=== PATIENT | male | born 1990 ===

== ENCOUNTER 2024-01-19 12:36 | Inpatient (IN) | payer MEDICAID, SELFPAY ==
[2024-01-19] VITALS (17 sets, daily range): BP systolic 113–130; BP diastolic 58–85; PULSE 68–124; RESP 16–17; TEMP 36.2–37.1; O2SAT 98; BMI 29.3
--- NOTE | ~2024-01-19 | CT_ITS ---
EXAMINATION: CT PELVIS WITH CONTRAST CLINICAL INFORMATION: Abscess. Question necrotizing fasciitis and cellulitis. COMPARISON: None available. TECHNIQUE: Helical scanning was performed with submillimeter collimation through the pelvis with the use of oral contrast and during bolus intravenous injection of 100 mL of Omnipaque 350 intravenous contrast. Sagittal and coronal multiplanar 2-D reconstructions were obtained. This CT examination was performed using dose optimization techniques as appropriate, variously including the following: *Automated exposure control *Adjustment of mA and/or kV according to patient size (this includes techniques or standardized protocols for targeted exams where dose is matched to indication/reason for exam; i.e. extremities or head) *Use of iterative reconstruction technique DLP: 2864 mGy-cm FINDINGS: BLADDER: Unremarkable GASTROINTESTINAL TRACT: The visualized small and large bowel appear unremarkable. ABDOMINAL WALL: Induration of subcutaneous fat in the left gluteal region. No abscess identified. No subcutaneous emphysema appreciated. LYMPH NODES: No evidence of adenopathy by size criteria. VASCULAR: Unremarkable PELVIC VISCERA: Unremarkable OSSEOUS STRUCTURES: No suspicious finding. Scattered bone islands. Approximately 1.2 cm, benign-appearing, well-circumscribed lytic lesion involving the right iliac bone (image 13, series 2). CT/CT pelvis w IV con IMPRESSION: Induration of subcutaneous fat in the left gluteal region. No abscess identified. No subcutaneous emphysema appreciated. Electronically signed by: Augustine Pradhan MD 01/19/2024 05:05 PM EDT
--- NOTE | 2024-01-19 12:45 | ED_ITS ---
HPI - General Adult General Chief complaint: Wound/Laceration Stated complaint: L buttock pain Time Seen by Provider: 01/19/24 13:32 Source: patient, RN notes reviewed and old records reviewed Mode of arrival: ambulatory History of Present Illness ED Provider: Suzi Larsen PA-C [facility] narrative: 33-year-old male with no significant past medical history presenting to ED complaining of suspected abscess to left buttock x 3 days. Admits to drainage noted yesterday. Reports subjective fever and chills. Denies difficulty or inability to have BM/urinate, bloody BMs, abdominal pain, vomiting Related Data Home Medications ?Medication ?Instructions ?Recorded ?Confirmed No Known Home Meds 01/19/24 01/19/24 Allergies Allergy/AdvReac Type Severity Reaction Status Date / Time amoxicillin [From AUGMENTIN] Allergy Severe HIVES Verified 01/19/24 12:45 clavulanic acid Allergy Severe HIVES Verified 01/19/24 12:45 [From AUGMENTIN] Review of Systems 2 Review of Systems: Yes all other systems are reviewed and are negative Constitutional: Constitutional: Reports as per HPI [facility] Past Medical History Attestation statement: The following information was validated with the patient. Source: old records reviewed Social History Social History Advance Directives: No Advance Directives Information Provided: Yes Do you have a plan to hurt others: No Plan Physical Exam ED Vital Signs: Vital Signs - 24 hr 01/19/24 12:44 01/19/24 14:03 01/19/24 14:33 Temperature 98.8 F Pulse Rate 124 H 98 78 Respiratory Rate 16 Blood Pressure 123/83 113/58 L 125/70 Pulse Oximetry 98 Oxygen Delivery Method Room Air 01/19/24 15:35 01/19/24 17:29 Temperature 98.6 F Pulse Rate 68 Respiratory Rate Blood Pressure 122/71 Pulse Oximetry Oxygen Delivery Method BMI result Body Mass Index 29.3 Const Other: Uncomfortable, standing General: cooperative, healthy appearing and no acute distress Orientation/consciousness: patient oriented x3 Limitations: no limitations HENMT Head: Yes normal to inspection and Yes atraumatic Ears: hearing grossly normal bilaterally General nose exam: Normal external nose present Face and sinus: Yes normal facial exam Eyes General: appearance normal, both eyes and all related structures EOM: EOMs intact bilaterally Neck Neck: Yes normal visual inspection and Yes no meningeal signs Resp Effort & Inspection: normal respiratory effort and no respiratory distress Cardio Rate: regular rate GI Inspection: Yes normal to inspection Palpation (GI): Soft to palpation, nontender, no guarding and not rigid Skin Other: + indurated abscess with surrounding cellulitis/erythema noted to left buttock. No fluctuance. + tender to palpation. No perirectal involvement. No perineal involvement Rashes: no rashes Neuro General: patient oriented x3, tone normal and no meningeal signs Cranial nerves: Yes CN's II-XII intact bilaterally Gait exam (Neuro): Normal gait present Extrem General: Yes normal to inspection Course Course Course Narrative: RME performed by Aidee Navarro PA-C. Patient is a 33 year old assigned male at presenting to the emergency department with a left buttock abscess. Patient states over the last 3 days he has had a left buttock abscess that is getting worse and giving him fevers at home. Detailed physical exam and review of systems are deferred to the ground operations crew member. Labs ordered. Patient placed back in the waiting room pending room availability and results. -1333--leukocytosis of 17.5. ESR/CRP elevated > will obtain lactic/blood cultures and ordered empiric IV Rocephin -total bilirubin mildly elevated (no priors to compare) -1448--lactic acid WNL -IV doxycycline added. -1630--case discussed with ED attending Dr. Alan who also evaluated patient. On re-evaluation patient is erythema has significantly worsened. Please refer to image. Concern for necrotizing fasciitis. Will obtain CT pelvis, and add broader coverage with IV Meropenem and Clindamycin. 1708--CT pelvis w IV con IMPRESSION: Induration of subcutaneous fat in the left gluteal region. No abscess identified. No subcutaneous emphysema appreciated. > will admit to hospitalist service and consult General surgery due to concern of early necrotizing fasciitis -Dr. Vu will evaluate patient in the ED > Dr. Vu performed bedside I&D. Patient admitted to hospitalist service Medications Administered Generic Name Dose Route Start Last Admin Trade Name Freq PRN Reason Stop Dose Admin Oxycodone HCl 5 mg 01/19/24 17:52 01/19/24 18:35 Oxycodone Hcl Immed Release 5 Mg Tablet PO 5 mg Q6H PRN Administration Pain, Moderate(Pain Scale 4-6) Discontinued Medications Generic Name Dose Route Start Last Admin Trade Name Mica PRN Reason Stop Dose Admin Ceftriaxone Sodium 1 gm/ 50 mls @ 100 mls/hr 01/19/24 13:33 01/19/24 14:29 Sodium Chloride IV 01/19/24 14:02 Infused ONCE ONE Infusion Sodium Chloride 1,000 mls @ 999 mls/hr 01/19/24 13:45 01/19/24 15:03 Ns IV 01/19/24 14:45 Infused .Q1H1M LUIS FERNANDO Infusion Sodium Chloride 1,000 mls @ 999 mls/hr 01/19/24 15:00 01/19/24 16:50 Ns IV 01/19/24 16:00 Infused .Q1H1M LUIS FERNANDO Infusion Sodium Chloride 400 mls @ 999 mls/hr 01/19/24 15:00 01/19/24 15:25 Ns IV 01/19/24 15:24 Infused .Q25M LUIS FERNANDO Infusion Doxycycline Hyclate 100 mg/ 250 mls @ 166.67 mls/hr 01/19/24 14:48 01/19/24 17:08 Sodium Chloride IV 01/19/24 16:17 Infused ONCE ONE Infusion Clindamycin Phosphate 600 mg in 50 mls @ 100 mls/hr 01/19/24 16:25 01/19/24 18:33 Cleocin IV 01/19/24 16:54 100 mls/hr ONCE ONE Administration Iohexol 85 ml 01/19/24 16:50 01/19/24 16:51 Iohexol 350 Mg/Ml 100 Ml Infus..Btl IV 01/19/24 16:51 85 ml ONCE ONE Administration Ketorolac Tromethamine 15 mg 01/19/24 14:31 01/19/24 14:38 Ketorolac Tromethamine 15 Mg/Ml Vial IVPUSH 01/19/24 14:32 15 mg ONCE ONE Administration Lidocaine HCl 5 ml 01/19/24 13:45 01/19/24 14:33 Lidocaine Hcl 1 % Mpf 5 Ml Vial INFILTRATI 01/19/24 13:46 5 ml ONCE ONE Administration Lidocaine HCl 5 ml 01/19/24 17:59 01/19/24 18:06 Lidocaine Hcl 1 % Mpf 5 Ml Vial INFILTRATI 01/19/24 18:00 5 ml ONCE ONE Administration Morphine Sulfate 2 mg 01/19/24 17:13 01/19/24 17:23 Morphine Sulfate 2 Mg/Ml Cartridge IVPUSH 01/19/24 17:14 2 mg ONCE ONE Administration Protocol Ondansetron HCl 4 mg 01/19/24 14:31 01/19/24 14:38 Ondansetron Hcl 4 Mg/2 Ml Vial IVPUSH 01/19/24 14:32 4 mg ONCE ONE Administration Procedures Abscess I/D Site: other (buttock) Side (if applicable): left Local Anesthetic: lidocaine 1% Amount of anesthesia used (mL): 2 Technique: needle aspiration Amount of fluid expressed (mL): 0 Sent for culture/gram staining?: No Irrigation: No Packing used?: none Medical Decision Making Medical Decision Making [facility] Narrative: 33-year-old male with no significant past medical history presenting to ED complaining of suspected abscess to left buttock x 3 days. On exam tachycardic likely from discomfort, standing, physical exam as above. Left buttock abscess appreciated with induration and cellulitis. Tender to palpation. No fluctuance. No perirectal involvement. Low suspicion for severe sepsis at this time, vital sign abnormalities likely from discomfort. Lower suspicion for fistula or deeper infection. No evidence of Tone's gangrene. Unlikely intra-abdominal pathology Plan: Labs ordered in triage, needle aspiration, Abx, reassess Please refer to course for remaining clinical decision making, interpretation of labs/imaging results, and discussions with consultants and/or family members. Differential Diagnosis Differential Diagnoses: The differential diagnosis associated with the presentation includes As above Admission/Observation Consideration of admission/observation: Escalation of care including admission/observation considered Consult Healthcare Provider Management of the patient was discussed with: Hospitalist Lab Data [facility] Lab Attestation statement: I reviewed the patient's lab results. 01/19/24 12:52 01/19/24 12:52 Labs: Lab Results 01/19/24 01/19/24 Range/Units 12:52 14:26 WBC 17.5 H (4.8-10.8) X10*3/uL RBC 5.04 (4.60-5.80) X10*6/uL Hgb 15.7 (14.0-18.0) g/dl Hct 44.7 (42.0-52.0) % MCV 88.7 (80.0-98.0) fL MCH 31.2 (27.0-33.0) pg MCHC 35.1 (31.0-36.0) g/dl RDW 12.2 (11.0-16.0) % Plt Count 240 (160-400) X10*3/uL MPV 8.6 L (9.4-12.4) fL Immature Gran % (Auto) 0.5 H (0.0-0.4) % Neut % (Auto) 81.6 H (45-73) % Lymph % (Auto) 11.8 L (20-40) % [place] % (Auto) 4.8 (2-11) % Eos % (Auto) 1.0 (0-4) % Baso % (Auto) 0.3 (0-2) % Lymph # (Auto) 2.1 (1.2-4.9) X10*3/uL [place] # (Auto) 0.8 (0.1-1.2) X10*3/uL Eos # (Auto) 0.2 (0.0-0.4) X10*3/uL Baso # (Auto) 0.1 (0.0-0.2) X10*3/uL Abs Immat Gran (auto) 0.09 H (0.00-0.03) X10*3/uL Absolute Neuts (auto) 14.3 H (2.0-8.3) x10*3/uL Absolute Nucleated RBC 0.000 (0.0-0.012) X10*3/uL Nucleated RBC % (auto) 0.0 (0.0-0.2) /100WBC ESR 18 H (0-15) MM/HR Sodium 141 (135-145) mmol/L Potassium 4.1 (3.3-5.1) mmol/L Chloride 107 (96-108) mmol/L Carbon Dioxide 24 (22-29) mmol/L Anion Gap 14 (12-20) BUN 11 (9-16) mg/dL Creatinine 0.76 (0.5-1.4) mg/dL Estim Creat Clear Calc 135.9 Estimated GFR > 60 Random Glucose 103 (60-115) mg/dL Lactic Acid 0.8 (0.5-2.0) mmol/L Calcium 9.5 (8.4-10.2) mg/dL Magnesium 2.0 (1.6-2.6) mg/dL Total Bilirubin 2.1 H (0.0-1.0) mg/dL AST 10 (5-37) U/L ALT 8 (0-40) U/L Alkaline Phosphatase 79 (39-117) U/L C-Reactive Protein 15.68 H (< or = 0.50) mg/dL Total Protein 7.5 (6.5-8.0) g/dL Albumin 4.5 (3.5-5.0) g/dL Independent Interpretation I performed an independent interpretation of an: CT Scan Radiology Impression Discussion of test interpretation with radiology: I have reviewed the radiologist's reading. External Record Review External record reviewed: Inpatient record, Office record, Outpatient record, Prior outpatient labs, Prior outpatient radiology, Primary care record and Outside ED record Tests considered The following testing was considered but not selected: As above Prescription Management I considered prescription management with: Pain Medication and Antibiotic Critical Care Time Critical Care Time Critical Care Time: Yes Total Critical Care Time: 60 Attestation: I have personally provided critical care time exclusive of time spent on separately billable procedures. Time includes review of lab data, radiology results, discussion with consultants, and monitoring for potential decompensation. Intervention performed as documented. Discharge Plan Discharge Clinical Impression: Abscess of buttock, Cellulitis Patient Disposition: Admitted As Inpatient
[2024-01-19 13:04] LABS: MANUAL DIFF FLAG NO
[2024-01-19 13:13] LABS: Basophils Absolute Auto 0.1 X10*3/uL (0.0-0.2); Basophils Percent Auto 0.3 % (0-2); Eosinophils Absolute Auto 0.2 X10*3/uL (0.0-0.4); Hematocrit 44.7 % (42.0-52.0); Hemoglobin 15.7 g/dl (14.0-18.0); Imm Gran Abs Auto 0.09 X10*3/uL (0.00-0.03); Imm Gran Pct Auto 0.5 % (0.0-0.4); Lymphocytes Absolute Auto 2.1 X10*3/uL (1.2-4.9); Lymphocytes Percent Auto 11.8 % (20-40); Mean Corpuscular HGB Conc 35.1 g/dl (31.0-36.0); Mean Corpuscular Hemoglobin 31.2 pg (27.0-33.0); Mean Corpuscular Volume 88.7 fL (80.0-98.0); Mean Platelet Volume 8.6 fL (9.4-12.4); Monocytes Absolute Auto 0.8 X10*3/uL (0.1-1.2); Monocytes Percent Auto 4.8 % (2-11); Neutrophils Absolute Auto 14.3 x10*3/uL (2.0-8.3); Neutrophils Percent Auto 81.6 % (45-73); Platelet Count 240 X10*3/uL (160-400); Red Blood Count 5.04 X10*6/uL (4.60-5.80); Red Cell Distribution Width 12.2 % (11.0-16.0); White Blood Count 17.5 X10*3/uL (4.8-10.8)
[2024-01-19 13:20] LABS: Alanine Aminotransferase 8 U/L (0-40); Albumin Level 4.5 g/dL (3.5-5.0); Alkaline Phosphatase 79 U/L (39-117); Anion Gap 14 (12-20); Aspartate Amino Transferase 10 U/L (5-37); Bilirubin Total 2.1 mg/dL (0.0-1.0); Blood Urea Nitrogen 11 mg/dL (9-16); C Reactive Protein 15.68 mg/dL (< or = 0.50); Calcium 9.5 mg/dL (8.4-10.2); Carbon Dioxide 24 mmol/L (22-29); Chloride 107 mmol/L (96-108); Creatinine Clr Calc Pharmacy 135.9; Estimated Glomerular Filt Rate > 60; Glucose Random 103 mg/dL (60-115); Potassium 4.1 mmol/L (3.3-5.1); Sodium 141 mmol/L (135-145); Total Protein 7.5 g/dL (6.5-8.0)
[2024-01-19 13:51] LABS: Erythrocyte Sedimentation Rate 18 MM/HR (0-15)
[2024-01-19] MEDS: cefTRIAXone sodium 1 GM in 0.9 % Sodium Chloride 50 ML IV (13:59)
[2024-01-19] MEDS: 0.9 % Sodium Chloride 1,000 ML 999 ML IV ×2 (13:59→15:39)
[2024-01-19] MEDS: Lidocaine HCl 1 % MPF 5 ML VIAL INFILTRATI ×2 (14:33→18:06)
[2024-01-19] MEDS: ondansetron HCL 4 MG/2 ML VIAL IVPUSH (14:38)
[2024-01-19] MEDS: Ketorolac Tromethamine 15 MG/ML VIAL IVPUSH (14:38)
[2024-01-19 14:42] LABS: Lactic Acid 0.8 mmol/L (0.5-2.0)
[2024-01-19] MEDS: Doxycycline Hyclate 100 MG in 0.9 % Sodium Chloride 250 ML 166.67 MG IV (15:28)
--- NOTE | 2024-01-19 16:46 | PC.NURSE ---
pt taken to CT- contact precautions initiated
[2024-01-19] MEDS: iohexoL 350 MG/ML 100 ML INFUS..BTL 85 ML IV (16:51)
[2024-01-19] MEDS: Morphine Sulfate 2 MG/ML CARTRIDGE IVPUSH (17:23)
--- NOTE | 2024-01-19 17:53 | P.HPHOSP_ITS ---
History of Present Illness Date of Service: 01/19/24 Chief Complaint: Left gluteal pain 33-year-old gentleman with no significant past medical history presented to [facility] ED with left buttock pain and discomfort as per patient 4 days ago he noted a small pimple, that gradually worsened with surrounding erythema, and worsening swelling, associated with nausea and chills, later patient developed pain in left groin with tingling sensation, with difficulty in ambulation therefore seek medical help patient denies IV drug use, no similar episodes in the past no history of diabetes, blood sugars stable workup in the ED showed WBC 17.5 1000 stable hemoglobin hematocrit electrolytes and renal function, CT pelvis showed induration of subcutaneous fat in the left gluteal region no abscess identified, no subcutaneous emphysema noted, vitals showed tachycardia, no fevers, patient will be admitted to [facility] with a diagnosis of sepsis due to left buttock cellulitis and developing abscess. Review of Systems 2 Review of Systems: General no headache, no dizziness ,+ chills. CVS no chest pain, no palpitation. Respiratory no cough ,no sob Gastrointestinal nausea, no vomiting, no abdominal pain, no diarrhea no urgency, no frequency Musculoskeletal no pain All other system reviewed and are negative PMFSH Pertinent family history: Parents alive no significant family history of diabetes or hypertension Social History Comment: No room assigned hank. Patient Tobacco Use Status: Never used Tobacco Smoked in Last 30 Days: No Advance Directives: No Advance Directives Information Provided: Yes Do you have a plan to hurt others: No Plan Nutrition Risks: No Nutritional Risk Meds Allergies Allergy/AdvReac Type Severity Reaction Status Date / Time amoxicillin [From AUGMENTIN] Allergy Severe HIVES Verified 01/19/24 12:45 clavulanic acid Allergy Severe HIVES Verified 01/19/24 12:45 [From AUGMENTIN] Active Medications: Current Medications Acetaminophen (Acetaminophen 325 Mg Tablet) 650 mg PO Q6H PRN PRN Reason: Pain, Mild (Pain Scale 1-3), fever or headache Calcium Carbonate (Calcium Carbonate 750 Mg Tab.Chew) 750 mg PO Q4H PRN PRN Reason: Heartburn Magnesium Hydroxide (Milk Of Magnesia 30 Ml Oral.Susp) 30 ml PO DAILY PRN PRN Reason: Constipation Melatonin (Melatonin 3 Mg Tablet) 6 mg PO BEDTIME PRN PRN Reason: Insomnia Ondansetron HCl (Ondansetron Hcl 4 Mg/2 Ml Vial) 4 mg IVPUSH Q8H PRN PRN Reason: Nausea and Vomiting Sodium Chloride (0.9 % Sodium Chloride Flush 3 Ml Syringe) 3 ml IVFLUSH QSHIFT [facility] Home Medications ?Medication ?Instructions ?Recorded ?Confirmed ?Last Taken ?Type No Known Home Meds 01/19/24 01/19/24 Unknown History Physical Exam 2 Vital Signs and Narrative: Vital Signs: Last Vital Signs Temp 98.6 F 01/19/24 15:35 Pulse 68 01/19/24 17:29 Resp 16 01/19/24 12:44 BP 122/71 01/19/24 17:29 Pulse Ox 98 01/19/24 12:44 O2 Del Method Room Air 01/19/24 12:44 BMI result Body Mass Index 29.3 Const: Other: General awake alert x3, in no acute distress. Anicteric sclera Neck no JVD. CVS regular rate rhythm, Respiratory lungs clear to auscultation, no respiratory distress, no wheeze, no rhonchi. Gastrointestinal abdomen soft, non tender, bowel sounds audible. Extremities no edema. Neuro non focal Skin no rash Left buttock erythema with small area of induration ,with significant tenderness and hyperemia, no fluctuation, no drainage. Results Labs 01/20/24 04:41 01/19/24 12:52 Labs: Laboratory Results - last 24 hr 01/19/24 01/19/24 12:52 14:26 MCV 88.7 MCH 31.2 MCHC 35.1 RDW 12.2 Plt Count 240 MPV 8.6 L Immature Gran % (Auto) 0.5 H Neut % (Auto) 81.6 H Lymph % (Auto) 11.8 L [place] % (Auto) 4.8 Eos % (Auto) 1.0 Baso % (Auto) 0.3 Lymph # (Auto) 2.1 [place] # (Auto) 0.8 Eos # (Auto) 0.2 Baso # (Auto) 0.1 Abs Immat Gran (auto) 0.09 H Absolute Neuts (auto) 14.3 H Absolute Nucleated RBC 0.000 Nucleated RBC % (auto) 0.0 ESR 18 H Anion Gap 14 Estim Creat Clear Calc 135.9 Estimated GFR > 60 Random Glucose 103 Lactic Acid 0.8 Calcium 9.5 Magnesium 2.0 Total Bilirubin 2.1 H AST 10 ALT 8 Alkaline Phosphatase 79 C-Reactive Protein 15.68 H Total Protein 7.5 Albumin 4.5 Imaging Radiologist's Impressions: Impressions Pelvis CT 01/19/24 16:37 IMPRESSION: Induration of subcutaneous fat in the left gluteal region. No abscess identified. No subcutaneous emphysema appreciated. Electronically signed by: Augustine Pradhan MD 01/19/2024 05:05 PM EDT RP Assessment and Plan (1) Cellulitis: Qualifiers: Site of cellulitis: buttock Qualified Code(s): L03.317 - Cellulitis of buttock Status: Acute (2) Abscess of buttock: Status: Acute Plan 33-year-old gentleman with no significant past medical history presented with 4 day history of small pimple left buttock that gradually worsened with surrounding erythema associated with subjective fevers chills and nausea presented due to difficulty in ambulation and pain will be admitted for left buttock cellulitis with developing abscess Sepsis due to acute left buttock cellulitis with abscess Admitted to medical floor IV vancomycin, allergic to penicillin Warm compresses, analgesics, antiemetics Surgical evaluation DVT prophylaxis low risk recommend early ambulation Patient will require 2 night inpatient hospitalization for treatment of acute cellulitis with developing abscess with IV antibiotics and expert consultation. Quality Stroke Does the patient have a stroke diagnosis?: No VTE Prior VTE?: No VTE Risk Level:: Medical - low VTE Device Contraindication: Treatment Not Indicated VTE Drug Contraindication: Treatment Not Indicated
--- NOTE | 2024-01-19 18:22 | PHA.MEDREC ---
Addendum entered by Keren Gabriel RPh 01/19/24 18:25: reviewed by [facility]. Original Note: Pharmacy Consult ? Medication Reconciliation Pharmacy has completed the medication reconciliation.
[2024-01-19] MEDS: Clindamycin Phosphate/D5W 600 MG/50 ML PIGGYBACK 100 MG IV (18:33)
[2024-01-19] MEDS: oxyCODONE HCl Immed Release 5 MG TABLET PO (18:35)
--- NOTE | 2024-01-19 18:54 | PM.CNGS ---
History of Present Illness Consult details Consult date: 01/19/24 Requesting physician: Tano Olmedo Narrative: 33-year-old male patient presenting with complaints of left buttock pain and swelling past 4 days. He reports the infection began as a small pimple which he tried the squeeze but gradually increased in size and pain. Now reports pain extending down the left leg with redness throughout the left buttock. He denies a previous infection at the site and denies previous in this location. He reports having fever and chills while at home and subsequently presented to the emergency department. In the emergency department he was noted to have a wide area of redness in the left buttock. WBC was 17.5. A CT of the pelvis showed induration of the subcutaneous fat with no definite abscess. An attempt was made at needle aspiration however no pus could be identified. Patient has been admitted to the hospitalist service for IV antibiotics. Surgical consultation was requested to evaluate for necrotizing fasciitis. Review of Systems Review of Systems: Yes all other systems are reviewed and are negative Constitutional: Constitutional: Reports chills, Reports fever(s), Denies headache(s), Denies poor appetite and Denies weakness ENT: Denies headache(s) Cardiovascular: Cardiovascular: Denies chest pain, Reports rapid heart rate, Denies irregular heart rhythm and Denies dyspnea Respiratory: Respiratory: Denies cough, Denies excessive phlegm production and Denies dyspnea Gastrointestinal: Gastrointestinal: Denies abdominal pain, Denies bloating, Denies change in bowel habits, Denies constipation, Denies heartburn, Denies diarrhea, Denies nausea and Denies vomiting Genitourinary: Genitourinary: Denies difficulty urinating and Denies urinary frequency Musculoskeletal: Musculoskeletal: Denies back pain, Reports muscle cramps, Denies muscle weakness and Denies numbness Integumentary/Breasts: Skin/Breast: Reports furuncle, Denies changing lesions, Reports erythema, Reports skin pain and Denies unusual bruising Neurologic: Denies headache(s), Denies numbness, Denies paresthesias and Denies weakness Psychiatric: Psychiatric: Denies anxiety and Denies depression Hematologic/Lymphatic: Hematologic/Lymphatic: Denies lymphadenopathy PMFSH Social History Social History Smoked in Last 30 Days: No Advance Directives: No Advance Directives Information Provided: Yes Do you have a plan to hurt others: No Plan Meds Allergies Allergy/AdvReac Type Severity Reaction Status Date / Time amoxicillin [From AUGMENTIN] Allergy Severe HIVES Verified 01/19/24 12:45 clavulanic acid Allergy Severe HIVES Verified 01/19/24 12:45 [From AUGMENTIN] Active Medications: Current Medications Acetaminophen (Acetaminophen 325 Mg Tablet) 650 mg PO Q6H PRN PRN Reason: Pain, Mild (Pain Scale 1-3), fever or headache Calcium Carbonate (Calcium Carbonate 750 Mg Tab.Chew) 750 mg PO Q4H PRN PRN Reason: Heartburn Vancomycin HCl (Vancomycin/Ns) 2,000 mg in 500 mls @ 250 mls/hr IV ONCE ONE Stop: 01/19/24 20:29 Vancomycin HCl 1,250 mg/ (Sodium Chloride) 250 mls @ 166.667 mls/hr IV Q12H LUIS FERNANDO Magnesium Hydroxide (Milk Of Magnesia 30 Ml Oral.Susp) 30 ml PO DAILY PRN PRN Reason: Constipation Melatonin (Melatonin 3 Mg Tablet) 6 mg PO BEDTIME PRN PRN Reason: Insomnia Morphine Sulfate (Morphine Sulfate 4 Mg/Ml Cartridge) 3 mg IVPUSH Q4H PRN; Protocol PRN Reason: Pain, Severe (Pain Scale 7-10) Ondansetron HCl (Ondansetron Hcl 4 Mg/2 Ml Vial) 4 mg IVPUSH Q8H PRN PRN Reason: Nausea and Vomiting Oxycodone HCl (Oxycodone Hcl Immed Release 5 Mg Tablet) 5 mg PO Q6H PRN PRN Reason: Pain, Moderate(Pain Scale 4-6) Last Admin: 01/19/24 18:35 Dose: 5 mg Pharmacy Consult (Consult Rx Vancomycin Dosing) 1 each MISCELLANE DAILY PRN PRN Reason: Consult order Sodium Chloride (0.9 % Sodium Chloride Flush 3 Ml Syringe) [address] [facility] Home Medications ?Medication ?Instructions ?Recorded ?Confirmed ?Last Taken ?Type No Known Home Meds 01/19/24 01/19/24 Unknown History Physical Exam Vital Signs: Vital Signs: Last Vital Signs Temp 98.6 F 01/19/24 15:35 Pulse 68 01/19/24 17:29 Resp 16 01/19/24 12:44 BP 122/71 01/19/24 17:29 Pulse Ox 98 01/19/24 12:44 O2 Del Method Room Air 01/19/24 12:44 BMI result Body Mass Index 29.3 Const: General: cooperative and no acute distress Nutritional Appearance: well nourished Orientation/consciousness: patient oriented x3 Limitations: no limitations HEENT: Head: Yes normocephalic and Yes atraumatic Ears: hearing grossly normal bilaterally Resp: Effort & Inspection: normal respiratory effort, no audible wheezes, no cough and no respiratory distress Cardio: Jugular venous distension: no JVD GI: Inspection: Yes normal to inspection Back/Spine/Pelvis: Back/spine/pelvis image: 1. Wide area of light cellulitis with a central area of increased erythema and induration, possibly with fluctuance noted. 2. Site of increased induration in the medial left gluteal wall. Site is exquisitely tender to palpation. Skin: Other: Warm, dry, cellulitis as noted above Neuro: General: patient oriented x3 Extrem: General: Yes no clubbing, cyanosis or edema Results Labs 01/19/24 12:52 01/19/24 12:52 Labs: Abnormal lab results 01/19/24 Range/Units 12:52 WBC 17.5 H (4.8-10.8) X10*3/uL MPV 8.6 L (9.4-12.4) fL Immature Gran % (Auto) 0.5 H (0.0-0.4) % Neut % (Auto) 81.6 H (45-73) % Lymph % (Auto) 11.8 L (20-40) % Abs Immat Gran (auto) 0.09 H (0.00-0.03) X10*3/uL Absolute Neuts (auto) 14.3 H (2.0-8.3) x10*3/uL ESR 18 H (0-15) MM/HR Total Bilirubin 2.1 H (0.0-1.0) mg/dL C-Reactive Protein 15.68 H (< or = 0.50) mg/dL Short CBC 01/19/24 Range/Units 12:52 WBC 17.5 H (4.8-10.8) X10*3/uL Hgb 15.7 (14.0-18.0) g/dl Hct 44.7 (42.0-52.0) % Plt Count 240 (160-400) X10*3/uL BMP 01/19/24 12:52 Sodium 141 Potassium 4.1 Chloride 107 Carbon Dioxide 24 BUN 11 Creatinine 0.76 Calcium 9.5 Liver Function 01/19/24 Range/Units 12:52 Total Bilirubin 2.1 H (0.0-1.0) mg/dL AST 10 (5-37) U/L ALT 8 (0-40) U/L Alkaline Phosphatase 79 (39-117) U/L Albumin 4.5 (3.5-5.0) g/dL All other labs normal. Assessment and Plan (1) Cellulitis: Qualifiers: Site of cellulitis: buttock Qualified Code(s): L03.317 - Cellulitis of buttock Status: Acute (2) Abscess of buttock: Status: Acute Plan 33-year-old male patient presenting with a left buttock abscess and cellulitis. This was incised and drained and a small purulence collection drained. No necrotizing fasciitis was identified. The wounds were then packed with half-inch iodoform gauze covered with dry sterile dressings. I will monitor the patient's cellulitis and abscess during this hospitalization. Procedures Date of Service Date of Service: 01/19/24 Abscess I/D Consent for Procedure: Emergent-no informed consent obtained Site: back (Left buttock) Side (if applicable): left Sedation/analgesia: none Anesthetic used: with epi Technique: incised with #11 blade Amount of fluid (mL): 2 Irrigation: Yes Packing used?: iodoform
[2024-01-19] MEDS: vancomycin/NS 2,000 MG/500 ML PLAST..BAG 250 MG IV (19:35)
[2024-01-19] MEDS: Morphine Sulfate 4 MG/ML CARTRIDGE 3 MG IVPUSH (22:42)
[2024-01-20] VITALS (7 sets, daily range): BP systolic 115–158; BP diastolic 60–78; PULSE 59–84; RESP 16–20; TEMP 36.3–37.1; O2SAT 94–98; BMI 29.3
[2024-01-20] MEDS: 0.9 % Sodium Chloride Flush 3 ML SYRINGE IVFLUSH ×2 (00:45→23:11)
[2024-01-20] MEDS: oxyCODONE HCl Immed Release 5 MG TABLET PO ×3 (01:38→15:03)
[2024-01-20 04:59] LABS: MANUAL DIFF FLAG NO
[2024-01-20 05:02] LABS: Basophils Percent Auto 0.3 % (0-2); Eosinophils Absolute Auto 0.2 X10*3/uL (0.0-0.4); Eosinophils Percent Auto 1.3 % (0-4); Hematocrit 39.1 % (42.0-52.0); Hemoglobin 13.2 g/dl (14.0-18.0); Imm Gran Abs Auto 0.07 X10*3/uL (0.00-0.03); Imm Gran Pct Auto 0.5 % (0.0-0.4); Lymphocytes Absolute Auto 2.3 X10*3/uL (1.2-4.9); Lymphocytes Percent Auto 17.5 % (20-40); Mean Corpuscular HGB Conc 33.8 g/dl (31.0-36.0); Mean Corpuscular Hemoglobin 30.3 pg (27.0-33.0); Mean Corpuscular Volume 89.7 fL (80.0-98.0); Mean Platelet Volume 8.4 fL (9.4-12.4); Monocytes Absolute Auto 0.8 X10*3/uL (0.1-1.2); Monocytes Percent Auto 5.6 % (2-11); Neutrophils Percent Auto 74.8 % (45-73); Platelet Count 198 X10*3/uL (160-400); Red Blood Count 4.36 X10*6/uL (4.60-5.80); Red Cell Distribution Width 11.9 % (11.0-16.0); White Blood Count 13.3 X10*3/uL (4.8-10.8)
[2024-01-20] MEDS: Morphine Sulfate 4 MG/ML CARTRIDGE 3 MG IVPUSH ×3 (06:23→19:24)
--- NOTE | 2024-01-20 07:33 | PC.NURSE ---
patient resting quetly in bed, respirations equal and unlabored. no signs of acute distress, patient is alert and oriented x4. VSS
[2024-01-20] MEDS: Acetaminophen 325 MG TABLET 650 MG PO (08:48)
[2024-01-20] MEDS: vancomycin HCL 1,250 MG in 0.9 % Sodium Chloride 250 ML 166.67 MG IV ×2 (08:49→20:49)
[2024-01-20 09:51] LABS: Creatinine Clr Calc Pharmacy 156.5; Estimated Glomerular Filt Rate > 60
--- NOTE | 2024-01-20 10:40 | HO.PM.IMPN ---
Subjective Subjective Date of Service: 01/20/24 Interval History: Complaining of left buttock discomfort, denies nausea, no vomiting complaining of subjective chills and fevers, tolerating diet no nausea, no vomiting no abdominal pain no diarrhea. Review of Systems All other system reviewed and are negative. Physical Exam Vital Signs: Vital Signs: Last Vital Signs Temp 98.0 F 01/20/24 08:47 Pulse 84 01/20/24 08:47 Resp 18 01/20/24 08:47 BP 133/60 01/20/24 08:47 Pulse Ox 94 01/20/24 08:47 O2 Del Method Room Air 01/20/24 08:47 BMI result Body Mass Index 29.3 Const: Other: General awake alert x3, in no acute distress. Anicteric sclera Neck no JVD. CVS regular rate rhythm, Respiratory lungs clear to auscultation, no respiratory distress, no wheeze, no rhonchi. Gastrointestinal abdomen soft, non tender, bowel sounds audible. Extremities no edema. Neuro non focal Skin no rash Left buttock erythema improving, persistent area of induration/abscess cavity packing in place , dressing saturated with bloody drainage, scant pus Objective Data Active Medications Acetaminophen (Acetaminophen 325 Mg Tablet) 650 mg PO Q6H PRN PRN Reason: Pain, Mild (Pain Scale 1-3), fever or headache Last Admin: 01/20/24 08:48 Dose: 650 mg Documented By: COTJESSA Calcium Carbonate (Calcium Carbonate 750 Mg Tab.Chew) 750 mg PO Q4H PRN PRN Reason: Heartburn Vancomycin HCl 1,250 mg/ (Sodium Chloride) 250 mls @ 166.667 mls/hr IV Q12H LUIS FERNANDO Last Admin: 01/20/24 08:49 Dose: 166.67 mls/hr Documented By: COTEMA Magnesium Hydroxide (Milk Of Magnesia 30 Ml Oral.Susp) 30 ml PO DAILY PRN PRN Reason: Constipation Melatonin (Melatonin 3 Mg Tablet) 6 mg PO BEDTIME PRN PRN Reason: Insomnia Morphine Sulfate (Morphine Sulfate 4 Mg/Ml Cartridge) 3 mg IVPUSH Q4H PRN; Protocol PRN Reason: Pain, Severe (Pain Scale 7-10) Last Admin: 01/20/24 06:23 Dose: 3 mg Documented By: ANGELINA Comments: Ondansetron HCl (Ondansetron Hcl 4 Mg/2 Ml Vial) 4 mg IVPUSH Q8H PRN PRN Reason: Nausea and Vomiting Oxycodone HCl (Oxycodone Hcl Immed Release 5 Mg Tablet) 5 mg PO Q6H PRN PRN Reason: Pain, Moderate(Pain Scale 4-6) Last Admin: 01/20/24 08:47 Dose: 5 mg Documented By: COTEMA Pharmacy Consult (Consult Rx Vancomycin Dosing) 1 each MISCELLANE DAILY PRN PRN Reason: Consult order Sodium Chloride (0.9 % Sodium Chloride Flush 3 Ml Syringe) 3 ml IVFLUSH QSHIFT [facility] Last Admin: 01/20/24 07:11 Dose: Not Given Documented By: PROVEN Non-Admin Reason: See Note Labs 01/20/24 04:41 01/20/24 08:54 Labs: Laboratory Results - last 24 hr 01/19/24 01/19/24 01/20/24 12:52 14:26 04:41 MCV 88.7 89.7 MCH 31.2 30.3 MCHC 35.1 33.8 RDW 12.2 11.9 Plt Count 240 198 MPV 8.6 L 8.4 L Immature Gran % (Auto) 0.5 H 0.5 H Neut % (Auto) 81.6 H 74.8 H Lymph % (Auto) 11.8 L 17.5 L [place] % (Auto) 4.8 5.6 Eos % (Auto) 1.0 1.3 Baso % (Auto) 0.3 0.3 Lymph # (Auto) 2.1 2.3 [place] # (Auto) 0.8 0.8 Eos # (Auto) 0.2 0.2 Baso # (Auto) 0.1 0.0 Abs Immat Gran (auto) 0.09 H 0.07 H Absolute Neuts (auto) 14.3 H 10.0 H Absolute Nucleated RBC 0.000 0.000 Nucleated RBC % (auto) 0.0 0.0 ESR 18 H Anion Gap 14 Estim Creat Clear Calc 135.9 Estimated GFR > 60 Random Glucose 103 Lactic Acid 0.8 Calcium 9.5 Magnesium 2.0 Total Bilirubin 2.1 H AST 10 ALT 8 Alkaline Phosphatase 79 C-Reactive Protein 15.68 H Total Protein 7.5 Albumin 4.5 09/09/24 08:54 MCV MCH MCHC RDW Plt Count MPV Immature Gran % (Auto) Neut % (Auto) Lymph % (Auto) [place] % (Auto) Eos % (Auto) Baso % (Auto) Lymph # (Auto) [place] # (Auto) Eos # (Auto) Baso # (Auto) Abs Immat Gran (auto) Absolute Neuts (auto) Absolute Nucleated RBC Nucleated RBC % (auto) ESR Anion Gap Estim Creat Clear Calc 156.5 Estimated GFR > 60 Random Glucose Lactic Acid Calcium Magnesium Total Bilirubin AST ALT Alkaline Phosphatase C-Reactive Protein Total Protein Albumin Assessment and Plan (1) Cellulitis: Status: Acute (2) Abscess of buttock: Status: Acute (3) Sepsis: Status: Acute Plan 33-year-old gentleman with no significant past medical history presented with 4 day history of small pimple left buttock that gradually worsened with surrounding erythema associated with subjective fevers chills and nausea presented due to difficulty in ambulation and pain will be admitted for left buttock cellulitis with developing abscess Sepsis due to acute left buttock cellulitis with abscess Persistent pain, less erythema, WBC trending down, blood cultures x2 pending Continue IV vancomycin started on 01/18, allergic to penicillin Continue analgesics, antiemetics Status post bedside I and D by General surgery, continue dry sterile dressing. DVT prophylaxis low risk recommend early ambulation. Patient will require continued inpatient hospitalization for treatment of acute cellulitis /abscess with IV antibiotics and expert consultation. Quality Stroke Does the patient have a stroke diagnosis?: No VTE Prior VTE?: No VTE Risk Level:: Medical - low VTE Device Contraindication: Treatment Not Indicated VTE Drug Contraindication: Treatment Not Indicated
--- NOTE | 2024-01-20 12:10 | MHC.CM.PN ---
PT LIVES WITHN HIS MOTHER HE IS INDEPENDENT HAS OWN RIDE HOME DC PLAN HOME NO SERVIES
--- NOTE | 2024-01-20 13:27 | P.PNGS_ITS ---
Subjective Subjective Date of Service: 01/20/24 Interval history: Hospital day 2: Patient feels improved with less pain and no pain down the leg. He did report some discharge from the wound overnight. Physical Exam 2 Vital Signs: Vital Signs: Last Vital Signs Temp 98.0 F 01/20/24 08:47 Pulse 84 01/20/24 08:47 Resp 18 01/20/24 08:47 BP 133/60 01/20/24 08:47 Pulse Ox 94 01/20/24 08:47 O2 Del Method Room Air 01/20/24 08:47 BMI result Body Mass Index 29.3 Const: General: no acute distress Nutritional Appearance: well nourished Orientation/consciousness: patient oriented x3 GI: Palpation (GI): Soft to palpation, nontender, no guarding and not rigid Back/Spine/Pelvis: Other: Left buttock erythema much improved. Incision and drainage site open and draining. Neuro: General: patient oriented x3 Extrem: General: No edema Objective Data Active Medications Acetaminophen (Acetaminophen 325 Mg Tablet) 650 mg PO Q6H PRN PRN Reason: Pain, Mild (Pain Scale 1-3), fever or headache Last Admin: 01/20/24 08:48 Dose: 650 mg Documented By: COTJESSA Calcium Carbonate (Calcium Carbonate 750 Mg Tab.Chew) 750 mg PO Q4H PRN PRN Reason: Heartburn Vancomycin HCl 1,250 mg/ (Sodium Chloride) 250 mls @ 166.667 mls/hr IV Q12H LUIS FERNANDO Last Infusion: 01/20/24 10:44 Dose: Infused Documented By: LUIS DANIEL Magnesium Hydroxide (Milk Of Magnesia 30 Ml Oral.Susp) 30 ml PO DAILY PRN PRN Reason: Constipation Melatonin (Melatonin 3 Mg Tablet) 6 mg PO BEDTIME PRN PRN Reason: Insomnia Morphine Sulfate (Morphine Sulfate 4 Mg/Ml Cartridge) 3 mg IVPUSH Q4H PRN; Protocol PRN Reason: Pain, Severe (Pain Scale 7-10) Last Admin: 01/20/24 11:29 Dose: 3 mg Documented By: LUIS DANIEL Ondansetron HCl (Ondansetron Hcl 4 Mg/2 Ml Vial) 4 mg IVPUSH Q8H PRN PRN Reason: Nausea and Vomiting Oxycodone HCl (Oxycodone Hcl Immed Release 5 Mg Tablet) 5 mg PO Q6H PRN PRN Reason: Pain, Moderate(Pain Scale 4-6) Last Admin: 01/20/24 08:47 Dose: 5 mg Documented By: VERNA Pharmacy Consult (Consult Rx Vancomycin Dosing) 1 each MISCELLANE DAILY PRN PRN Reason: Consult order Sodium Chloride (0.9 % Sodium Chloride Flush 3 Ml Syringe) 3 ml IVFLUSH QSHIFT [facility] Last Admin: 01/20/24 07:11 Dose: Not Given Documented By: FIDELINA Non-Admin Reason: See Note Labs 01/20/24 04:41 01/20/24 08:54 Labs: Laboratory Results - last 24 hr 01/19/24 01/19/24 01/20/24 12:52 14:26 04:41 MCV 89.7 MCH 30.3 MCHC 33.8 RDW 11.9 Plt Count 198 MPV 8.4 L Immature Gran % (Auto) 0.5 H Neut % (Auto) 74.8 H Lymph % (Auto) 17.5 L [place] % (Auto) 5.6 Eos % (Auto) 1.3 Baso % (Auto) 0.3 Lymph # (Auto) 2.3 [place] # (Auto) 0.8 Eos # (Auto) 0.2 Baso # (Auto) 0.0 Abs Immat Gran (auto) 0.07 H Absolute Neuts (auto) 10.0 H Absolute Nucleated RBC 0.000 Nucleated RBC % (auto) 0.0 ESR 18 H Estim Creat Clear Calc Estimated GFR Lactic Acid 0.8 01/20/24 08:54 MCV MCH MCHC RDW Plt Count MPV Immature Gran % (Auto) Neut % (Auto) Lymph % (Auto) [place] % (Auto) Eos % (Auto) Baso % (Auto) Lymph # (Auto) [place] # (Auto) Eos # (Auto) Baso # (Auto) Abs Immat Gran (auto) Absolute Neuts (auto) Absolute Nucleated RBC Nucleated RBC % (auto) ESR Estim Creat Clear Calc 156.5 Estimated GFR > 60 Lactic Acid Procedures Date of Service Date of Service: 01/20/24 Progress Note: A&P Assessment and plan (1) Cellulitis: Status: Acute (2) Abscess of buttock: Status: Acute Plan Hospital day 2: Status post I&D of an abscess of the left buttock. Overall patient is improved with decreased pain and continued discharge from the I&D site. On exam the erythema is much improved. Continue antibiotics as per hospitalist team. Time Spent With Patient Time: Total time managing care of this patient today ____ minutes. Quality Stroke Does the patient have a stroke diagnosis?: No VTE Prior VTE?: No VTE Risk Level:: Medical - low VTE Device Contraindication: Treatment Not Indicated VTE Drug Contraindication: Treatment Not Indicated
[2024-01-20 19:06] LABS: Vancomycin Random 6.8 mcg/mL (15-20)
--- NOTE | 2024-01-20 19:18 | HE.PHANOTE ---
RE: VANCO DOSING Random came back as 6.8 (this is after only 2 doses). Continue with 1250 mg q12h, next random is scheduled for 01/21/24 @1800.
[2024-01-21 03:25] VITALS: BP 126/71; PULSE 62; RESP 16; TEMP 36.5; O2SAT 96
--- NOTE | 2024-01-21 05:20 | PC.NURSE ---
Assumed care at 0530 and previous RN said pt was requesting for a dressing change, pt seen in room alert and awake, upset of undisclosed reason, angry and wanting to go home, wanted his IVlline removed, pt was instructed, and his decisions will be honored, Pt decided stay and wait for MD in the morning, noted left gluteal dressing is care home soiled with tannish disc, area cleansed with NS and covered with sterile 4x4 and abd pad, pt tolerated well.
[2024-01-21 06:17] LABS: Creatinine Clr Calc Pharmacy 151.9; Estimated Glomerular Filt Rate > 60; Hemoglobin 13.5 g/dl (14.0-18.0); Mean Corpuscular HGB Conc 35.5 g/dl (31.0-36.0); Mean Corpuscular Volume 87.2 fL (80.0-98.0); Mean Platelet Volume 8.3 fL (9.4-12.4); Platelet Count 215 X10*3/uL (160-400); Red Blood Count 4.36 X10*6/uL (4.60-5.80); Red Cell Distribution Width 11.9 % (11.0-16.0); White Blood Count 7.1 X10*3/uL (4.8-10.8)
[2024-01-21 07:14] VITALS: BP 119/74; PULSE 55; RESP 16; TEMP 36.7; O2SAT 97
[2024-01-21] MEDS: vancomycin HCL 1,250 MG in 0.9 % Sodium Chloride 250 ML 166.67 MG IV (07:47)
[2024-01-21] MEDS: 0.9 % Sodium Chloride Flush 3 ML SYRINGE IVFLUSH (07:50)
--- NOTE | 2024-01-21 07:58 | P.PNGS_ITS ---
Subjective Subjective Date of Service: 01/21/24 Interval history: Patient feels much improved with decreased buttock pain. Notes some discharge from incision site. Physical Exam 2 Vital Signs: Vital Signs: Last Vital Signs Temp 98.0 F 01/21/24 07:14 Pulse 55 01/21/24 07:14 Resp 16 01/21/24 07:14 BP 119/74 01/21/24 07:14 Pulse Ox 97 01/21/24 07:14 O2 Del Method Room Air 01/21/24 07:14 BMI result Body Mass Index 29.3 Const: General: no acute distress Nutritional Appearance: well nourished Orientation/consciousness: patient oriented x3 Resp: Effort & Inspection: normal respiratory effort Back/Spine/Pelvis: Other: Packing removed. Some purulence discharge noted. New dressings applied. Erythema markedly improved with only a central area of erythema remaining. Back/spine/pelvis image: 1. Incision and drainage site Neuro: General: patient oriented x3 Extrem: General: Yes no clubbing, cyanosis or edema Objective Data Active Medications Acetaminophen (Acetaminophen 325 Mg Tablet) 650 mg PO Q6H PRN PRN Reason: Pain, Mild (Pain Scale 1-3), fever or headache Last Admin: 01/20/24 08:48 Dose: 650 mg Documented By: COTEMA Calcium Carbonate (Calcium Carbonate 750 Mg Tab.Chew) 750 mg PO Q4H PRN PRN Reason: Heartburn Vancomycin HCl 1,250 mg/ (Sodium Chloride) 250 mls @ 166.667 mls/hr IV Q12H LUIS FERNANDO Last Admin: 01/21/24 07:47 Dose: 166.67 mls/hr Documented By: DABA Magnesium Hydroxide (Milk Of Magnesia 30 Ml Oral.Susp) 30 ml PO DAILY PRN PRN Reason: Constipation Melatonin (Melatonin 3 Mg Tablet) 6 mg PO BEDTIME PRN PRN Reason: Insomnia Morphine Sulfate (Morphine Sulfate 4 Mg/Ml Cartridge) 3 mg IVPUSH Q4H PRN; Protocol PRN Reason: Pain, Severe (Pain Scale 7-10) Last Admin: 01/20/24 19:24 Dose: 3 mg Documented By: TUMASY Ondansetron HCl (Ondansetron Hcl 4 Mg/2 Ml Vial) 4 mg IVPUSH Q8H PRN PRN Reason: Nausea and Vomiting Oxycodone HCl (Oxycodone Hcl Immed Release 5 Mg Tablet) 5 mg PO Q6H PRN PRN Reason: Pain, Moderate(Pain Scale 4-6) Last Admin: 01/20/24 15:03 Dose: 5 mg Documented By: LUIS DANIEL Pharmacy Consult (Consult Rx Vancomycin Dosing) 1 each MISCELLANE DAILY PRN PRN Reason: Consult order Sodium Chloride (0.9 % Sodium Chloride Flush 3 Ml Syringe) 3 ml IVFLUSH QSHIFT [facility] Last Admin: 01/21/24 07:50 Dose: 3 ml Documented By: BRITTANI Labs 01/21/24 05:40 01/21/24 05:40 Labs: Laboratory Results - last 24 hr 01/20/24 01/20/24 01/21/24 08:54 18:19 05:40 MCV 87.2 MCH 31.0 MCHC 35.5 RDW 11.9 Plt Count 215 MPV 8.3 L Absolute Nucleated RBC 0.000 Nucleated RBC % (auto) 0.0 Estim Creat Clear Calc 156.5 151.9 Estimated GFR > 60 > 60 Random Vancomycin 6.8 L Microbiology Microbiology Results: Microbiology 01/19/24 14:02 Blood Culture - Preliminary Blood - Venous No growth after 24 hours. 01/19/24 14:02 Blood Culture - Preliminary Blood - Venous No growth after 24 hours. Procedures Date of Service Date of Service: 01/21/24 Progress Note: A&P Assessment and plan (1) Abscess of buttock: Status: Acute Plan 33-year-old male patient with a resolving abscess of the left buttock status post incision and drainage. Wounds are much improved today. He is clear from my standpoint for discharge. She will follow up in the office in 1-2 weeks for wound check. He will need daily dressing changes with 4 x 4 gauze and paper tape. He may shower prior to dressing change. Time Spent With Patient Time: Total time managing care of this patient today ____ minutes. Quality Stroke Does the patient have a stroke diagnosis?: No VTE Prior VTE?: No VTE Risk Level:: Medical - low VTE Device Contraindication: Treatment Not Indicated VTE Drug Contraindication: Treatment Not Indicated
[2024-01-21 09:00] LABS: Estimated Average Glucose 97 mg/dL
--- NOTE | 2024-01-21 11:18 | HO.WOUND ---
Wound Consult cancelled 33yr old? [place] [facility] 17:48- See progress notes and H&P for detailed history.? Wound consult placed for Left Gluteal wound. Brief chart review reveals patient is seen and followed by Dr. Vu this admission and topical recommendation in place for Daily dressing changes. Discussed with Dr. Palomo will cancel wound consult and defer to Dr. Vu.
[2024-01-21] MEDS: Sulfamethox/Trimeth 800/160 TABLET 1 TAB PO (11:30)
--- NOTE | 2024-01-21 11:34 | PM.DS ---
DS: Providers Provider Date of Service: 01/21/24 Date of admission: 01/19/24 17:48 Date of discharge: 01/21/24 Primary care physician: Unknown Physician Consults: 01/19/24 17:50 Consult to General Surgery [place]ine [place]ing [place] [facility] Reason for consultation: Left gluteal cellulitis/in duration Has provider been notified: No DS: Diagnosis Discharge Diagnosis (1) Abscess of buttock: Status: Acute (2) Cellulitis: Status: Acute (3) Sepsis: Status: Acute DS: Summary Hospital Course Hospital Course: From the history and physical by the admitting hospitalist, Tano Olmedo MD, 01/19/24: 33-year-old gentleman with no significant past medical history presented to [place] ED with left buttock pain and discomfort as per patient 4 days ago he noted a small pimple, that gradually worsened with surrounding erythema, and worsening swelling, associated with nausea and chills, later patient developed pain in left groin with tingling sensation, with difficulty in ambulation therefore seek medical help patient denies IV drug use, no similar episodes in the past no history of diabetes, blood sugars stable workup in the ED showed WBC 17.5 1000 stable hemoglobin hematocrit electrolytes and renal function, CT pelvis showed induration of subcutaneous fat in the left gluteal region no abscess identified, no subcutaneous emphysema noted, vitals showed tachycardia, no fevers, patient will be admitted to [facility] with a diagnosis of sepsis due to left buttock cellulitis and developing abscess. He was admitted to the medical-surgical unit and treated with IV vancomycin. Bedside incision and drainage was done by the consulting surgeon on admission. Erythema and pain improved and leukocytosis resolved. Blood cultures were negative. He was discharged on sulfamethoxazole-trimethoprim for 7 days and should follow up with the surgeon in 1-2 weeks. For wound care, daily dressing changes with 4x4 gauze and paper tape are recommended. Time Attestation Discharge Coordination Time (in mins): 35 Quality: Safe Use of Opioids Does Pt have an Active Cancer Diagnosis on the Problem List?: No Quality: Stroke Does the patient have a stroke diagnosis?: No Physical Exam Vital Signs: Vital Signs: Last Vital Signs Temp 98.0 F 01/21/24 07:14 Pulse 55 01/21/24 07:14 Resp 16 01/21/24 07:14 BP 119/74 01/21/24 07:14 Pulse Ox 97 01/21/24 07:14 O2 Del Method Room Air 01/21/24 07:14 BMI result Body Mass Index 29.3 Gen: in no acute distress HEENT: sclera anicteric, moist mucus membranes Neck: supple Lungs: clear to auscultation bilaterally Heart: regular rate and rhythm, no murmurs Abd: soft, non-tender, non-distended Ext: no edema Skin: I+D site left buttock with some residual erythema; no fluctuance Neuro: alert and oriented x3, no focal findings Psych: appropriate affect DS: Data Data Completed and Pending Completed studies during hospitalization [Text1]: Laboratory Results WBC 7.1 X10*3/uL (4.8-10.8) 01/21/24 05:40 RBC 4.36 X10*6/uL (4.60-5.80) L 01/21/24 05:40 Hgb 13.5 g/dl (14.0-18.0) L 01/21/24 05:40 Hct 38.0 % (42.0-52.0) L 01/21/24 05:40 MCV 87.2 fL (80.0-98.0) 01/21/24 05:40 MCH 31.0 pg (27.0-33.0) 01/21/24 05:40 MCHC 35.5 g/dl (31.0-36.0) 01/21/24 05:40 RDW 11.9 % (11.0-16.0) 01/21/24 05:40 Plt Count 215 X10*3/uL (160-400) 01/21/24 05:40 MPV 8.3 fL (9.4-12.4) L 01/21/24 05:40 Immature Gran % (Auto) 0.5 % (0.0-0.4) H 01/20/24 04:41 Neut % (Auto) 74.8 % (45-73) H 01/20/24 04:41 Lymph % (Auto) 17.5 % (20-40) L 01/20/24 04:41 [place] % (Auto) 5.6 % (2-11) 01/20/24 04:41 Eos % (Auto) 1.3 % (0-4) 01/20/24 04:41 Baso % (Auto) 0.3 % (0-2) 01/20/24 04:41 Lymph # (Auto) 2.3 X10*3/uL (1.2-4.9) 01/20/24 04:41 [place] # (Auto) 0.8 X10*3/uL (0.1-1.2) 01/20/24 04:41 Eos # (Auto) 0.2 X10*3/uL (0.0-0.4) 01/20/24 04:41 Baso # (Auto) 0.0 X10*3/uL (0.0-0.2) 01/20/24 04:41 Abs Immat Gran (auto) 0.07 X10*3/uL (0.00-0.03) H 01/20/24 04:41 Absolute Neuts (auto) 10.0 x10*3/uL (2.0-8.3) H 01/20/24 04:41 Absolute Nucleated RBC 0.000 X10*3/uL (0.0-0.012) 01/21/24 05:40 Nucleated RBC % (auto) 0.0 /100WBC (0.0-0.2) 01/21/24 05:40 ESR 18 MM/HR (0-15) H 01/19/24 12:52 Sodium 141 mmol/L (135-145) 01/19/24 12:52 Potassium 4.1 mmol/L (3.3-5.1) 01/19/24 12:52 Chloride 107 mmol/L (96-108) 01/19/24 12:52 Carbon Dioxide 24 mmol/L (22-29) 01/19/24 12:52 Anion Gap 14 (12-20) 01/19/24 12:52 BUN 11 mg/dL (9-16) 01/19/24 12:52 Creatinine 0.68 mg/dL (0.5-1.4) 01/21/24 05:40 Estim Creat Clear Calc 151.9 01/21/24 05:40 Estimated GFR > 60 01/21/24 05:40 Random Glucose 103 mg/dL (60-115) 01/19/24 12:52 Estimat Average Glucose 97 mg/dL 01/21/24 05:40 Hemoglobin A1c % 5.0 % (<6.0) 01/21/24 05:40 Lactic Acid 0.8 mmol/L (0.5-2.0) 01/19/24 14:26 Calcium 9.5 mg/dL (8.4-10.2) 01/19/24 12:52 Magnesium 2.0 mg/dL (1.6-2.6) 01/19/24 12:52 Total Bilirubin 2.1 mg/dL (0.0-1.0) H 01/19/24 12:52 AST 10 U/L (5-37) 01/19/24 12:52 ALT 8 U/L (0-40) 01/19/24 12:52 Alkaline Phosphatase 79 U/L (39-117) 01/19/24 12:52 C-Reactive Protein 15.68 mg/dL (< or = 0.50) H 01/19/24 12:52 Total Protein 7.5 g/dL (6.5-8.0) 01/19/24 12:52 Albumin 4.5 g/dL (3.5-5.0) 01/19/24 12:52 Random Vancomycin 6.8 mcg/mL (15-20) L 01/20/24 18:[address] 01/19/24 16:37 IMPRESSION: Induration of subcutaneous fat in the left gluteal region. No abscess identified. No subcutaneous emphysema appreciated. Electronically signed by: Augsutine Pradhan MD 01/19/2024 05:05 PM EDT Discharge Plan Discharge Anticipated Discharge Date/Time: 01/21/24 16:00 Patient Disposition: Home, Self-Care Discharge Diagnosis: sepsis due to abscess/cellulitis Referrals: Sven Vu MD [Physician] - 2 Weeks PhysicianClaudette [Primary Care Provider] - 1 Week Discharge Medications: New sulfamethoxazole-trimethoprim 800-160 mg tablet 1 tab PO BID Qty: 14 0RF Discharge Orders: Discharge Order (Routine); Ordered 01/21/24 Ordered By: Pee Palomo Diet: Advance to usual diet Activity on Discharge: As tolerated Stand Alone Forms: Patient Portal Discharge page Print Language: Divehi Care Plan Goals: cure of infection Health Concerns: sepsis due to abscess/cellulitis Plan of Treatment: daily dressing changes with 4 x 4 gauze and paper tape; may shower prior to dressing change [place] [facility] 1-2 weeks take acetaminophen [Tylenol] for pain antibiotics treatment: sulfamethoxazole-trimethoprim [Bactrim DS] 800-160 mg, 1 tab twice daily for 7 days Please follow up with your primary care doctor within 1 week. Return to the hospital if you experience recurrent or worsening symptoms. Assessment: See Discharge Summary. Discharge Date/Time: 01/21/24 15:11
--- NOTE | 2024-01-21 11:42 | PC.NURSE ---
best number to contact pt
--- NOTE | 2024-02-07 16:21 | P.CDIM_ITS ---
PROVIDER RESPONSE TEXT: To clarify, the appropriate diagnosis supported by the clinical indicators: Incision and drainage left buttock: Only incision and drainage performed, no debridement; see procedu re note in 01/19/2024 consultation QUERY TEXT: PHYSICIAN'S DOCUMENTATION REQUEST Date of Query: 01/21/2024 08:26 AM EDT Patient Name: Ar Albert Admit Date: 01/19/2024 Dear Sven Vu MD, A review of the medical record indicates additional documentation may be needed. Please review below and update the documentation accordingly. Clinical Indicators: ED 01/18 - I&D - Left buttock, lidocaine 1%, need aspiration. Could you provide, in the Progress Notes, further clarification regarding the depth of the debridemen t? Incision and drainage left buttock skin, subcutaneous tissue and fascia. etc Other (explain) Clinically unable to determine (explain) Thank you, Roxanna Allred, CCS, CDIS Use of terms such as suspected, likely, concern for, or probable (associated with a specific diagnosi s that is being evaluated, monitored, or treated as if it exists) are acceptable and can be coded in the inpatient se tting, when documented at the time of discharge. Please use your independent medical judgment in providing your response. THIS QUERY IS PART OF THE PERMANENT MEDICAL RECORD
== END 2024-01-21 15:11 | disposition home or self-care (01) | DRG 720 ==
LOC: HO.ED 14:45 → HO.EDOVER 17:57 → HO.S3 01-20 07:28
PROVIDERS: Physician Assistant; Physician Assistant Medical; Admitting Provider Hospitalist; Emergency Provider Emergency Medicine Emergency Medical Services; Visit Provider Family Medicine
DX: A41.9 Sepsis, unspecified organism (principal); L02.31 Cutaneous abscess of buttock; L03.317 Cellulitis of buttock; Z88.0 Allergy status to penicillin
CPT/HCPCS: 36415; 72193; 80053; 80202; 82565; 83036; 83605; 83735; 85025; 85027; 85652; 86140; 87040; 99285; J0696; J0736; J1885; J2185; J2270; J2405; J3370; J3371; Q9967

== ENCOUNTER → 2024-01-19 17:48 | Outpatient (BNV) | payer MEDICAID, SELFPAY | PROVIDERS: Admitting Provider Hospitalist; Emergency Provider Emergency Medicine Emergency Medical Services; Visit Provider Surgery | DX: L03.317 Cellulitis of buttock (principal); L02.31 Cutaneous abscess of buttock | CPT/HCPCS: 10060; 99024; 99222 ==

== ENCOUNTER → 2024-01-19 17:48 | Outpatient (BNV) | payer MEDICAID, SELFPAY | PROVIDERS: Admitting Provider Hospitalist; Emergency Provider Emergency Medicine Emergency Medical Services; Visit Provider Hospitalist | DX: A41.9 Sepsis, unspecified organism (principal); L02.31 Cutaneous abscess of buttock; L03.317 Cellulitis of buttock | CPT/HCPCS: 99223; 99233; 99239 ==